=== PATIENT | male | born 1970 | race Caucasian/White ===

== ENCOUNTER 2019-09-14 07:02 | Emergency (ER) | payer OTHER, SELFPAY ==
--- NOTE | ~2019-09-14 | CT_ITS ---
EXAMINATION: CT abdomen pelvis wo con DATE: 09/14/2019 08:21 INDICATION: Left flank pain. History kidney stones. TECHNIQUE: Computed tomography (CT) of the abdomen and pelvis was performed without intravenous contr ast. Automated exposure control and iterative reconstruction technique were employed. Exam dose: 103 1.78 mGy-cm total exam DLP. COMPARISON: 11/20/2006 CT abdomen FINDINGS: Linear calcified pulmonary granuloma. The lung bases are clear of infiltrate or consolidati on. Cardiomegaly. No pericardial or pleural effusion. The gallbladder is present. No bile duct or pancreatic duct dilatation. Hepatic steatosis. No hepatic, splenic, pancreatic, adrenal or renal space-occupying mass lesion is e vident on this limited noncontrast examination. Normal caliber of the abdominal aorta. No intraperitoneal or retroperitoneal or pelvic mass lesion or adenopathy or ascites. There is a 5 mm obstructing stone at the proximal left ureter at the upper L3 level, with mild proxim al hydroureteronephrosis. There is a nonobstructing 6.2 mm calculus at the upper pole of the left kidney. There is a nonobstructing right renal 3 mm calculus. No right hydroureteronephrosis. The urinary blad di is unremarkable. There is mild prostate enlargement and calcification. The urinary bladder is unremarkable. There are bilateral fat-containing inguinal hernias, right, larger than left. Partial fusion of the sacroiliac joints. IMPRESSION: 5 mm obstructing stone of proximal left ureter with mild proximal hydroureteronephrosis Nonobstructing 6.2 mm calculus of upper pole of left kidney Hepatic steatosis Bilateral fat-containing inguinal hernias, right greater than left Cardiomegaly Reviewed, dictated and finalized at [facility]. Reviewed, dictated and finalized at [facility].
--- NOTE | ~2019-09-14 | XR_ITS ---
EXAMINATION: XR abdomen/kub 1V INDICATION: Left flank pain TECHNIQUE: Supine views of the abdomen were obtained on 2 radiographs. COMPARISON: CT from today FINDINGS: There is a 5 mm stone of the proximal left ureter projecting over the left L3 transverse pr ocess. A 4 mm stone is seen in the left kidney upper pole. Right nephrolithiasis described on the [facility] CT is not definitely identified. The bowel gas pattern is normal. The visualized lung bases a re clear. IMPRESSION: 1. 5 mm left proximal ureteral stone projecting over the left L3 transverse process. 2. Left nephrolithiasis. Reviewed, dictated and finalized at location [facility]. IMPRESSION: 1. 5 mm left proximal ureteral stone projecting over the left L3 transverse pro cess. 2. Left nephrolithiasis.
[2019-09-14 07:09] VITALS: BP 158/81; PULSE 50; RESP 20; TEMP 36.4; O2SAT 100
[2019-09-14 07:42] LABS: Basophils Absolute Auto 0.1 K/mm3 (0.0-0.1); Basophils Percent Auto 0.9 % (0.2-1.2); Eosinophils Absolute Auto 0.1 K/mm3 (0-0.3); Hematocrit 50.7 % (42.0-52.0); Hemoglobin 17.2 g/dL (14.0-18.0); Immature Granulocyte Absolute 0.01 K/mm3 (0.00-0.031); Immature Granulocyte Percent A 0.1 % (0-0.5); Lymphocytes Absolute Auto 1.94 K/mm3 (0.9-3.2); Lymphocytes Percent Auto 25.1 % (18.3-44.2); Mean Corpuscular HGB Conc 33.9 g/dl (32-36); Mean Corpuscular Hemoglobin 31.9 pg (26-34); Mean Corpuscular Volume 94.1 fl (80-100); Mean Platelet Volume 10.6 fl (7.4-10.4); Monocytes Absolute Auto 0.4 K/mm3 (0.1-0.6); Monocytes Percent Auto 5.3 % (2.6-8.5); Neutrophils Absolute Auto 5.2 K/mm3 (1.3-6.7); Neutrophils Percent Auto 67.6 % (45.5-73.1); Platelet Count Result 301 k/mm3 (150-375); Red Blood Count 5.39 M/mm3 (4.6-6.20); Red Cell Distribution Width 13.2 % (11.5-14.5); White Blood Count 7.7 K/mm3 (4.5-10.0)
[2019-09-14] MEDS: ONDANSETRON INJ 4 MG/2 ML VIAL IV PUSH (07:49)
[2019-09-14] MEDS: MORPHINE SULFATE 4 MG/ML INJ IV PUSH (07:49)
[2019-09-14] MEDS: SODIUM CHLORIDE 0.9% IV 1,000 ML 999 ML IV CONT (07:49)
[2019-09-14 07:51] LABS: Blood Urea Nitrogen 17 mg/dL (9-20); Calcium 9.1 mg/dL (8.4-10.2); Carbon Dioxide 28 mmol/L (22-30); Chloride 101 mmol/L (98-107); Estimated CRCL calculation 82 ml/min; Estimated Glomerular Filt Rate > 60; Glucose 187 mg/dL (75-110); Sodium 138 mmol/L (137-145)
--- NOTE | 2019-09-14 08:06 | ED.ABDPAIN ---
HPI - Abdominal Pain General Chief Complaint: Abdominal Pain Stated Complaint: L flank pain Time Seen by Provider: 09/14/19 07:07 History of Present Illness HPI narrative: Patient is a 49-year-old male who presents the ER with left-sided flank pain. Sudden onset at 4 AM. Radiates into the abdomen. Associate with nausea and vomiting x1. No urinary frequency or urgency. No hematuria or dysuria. Concerned he may have a kidney stone. No alleviating factors noted. Related Data Allergies Allergy/AdvReac Type Severity Reaction Status Date / Time No Known Allergies Allergy Verified 09/14/19 07:14 Review of Systems Review of Systems: All systems reviewed & are unremarkable except as noted in HPI and below Constitutional: Constitutional: Denies chills and Denies fever(s) Gastrointestinal: Gastrointestinal: Reports nausea and Reports vomiting Genitourinary: Genitourinary: Denies hematuria, Denies dysuria, Denies testicular pain and Denies urinary frequency PMFSH Past Medical History Medical History (Updated 09/14/19 @ 10:08 by Raghu Jolly MD) Melanoma Surgical History Surgical History (Updated 09/14/19 @ 08:08 by Raghu Jolly MD) H/O melanoma excision Social History Social History (Updated 09/14/19 @ 08:08 by Raghu Jolly MD) Smoking status: Never smoker Gender identity (if verbalized by the patient): Male Exam Narrative: Exam Narrative: GENERAL: Uncomfortable-appearing, well-nourished, and in no acute distress. HEAD: Normocephalic, atraumatic. ENT: Mucous membranes moist. CHEST: Clear to auscultation. No respiratory distress. HEART: Regular rate and rhythm. Normal peripheral pulses. ABDOMEN: Soft, nontender, nondistended. EXTREMITIES: Normal range of motion. No edema. NEURO: Alert and oriented x3. PSYCH: Normal mood and affect. Course Course Emergency Course: Patient feeling better after morphine. Informed of results. Discussed case with urology who recommends close follow-up. Patient be provided supportive medications for home. Vital Signs Vital signs: Vital Signs Temperature 97.5 F L 09/14/19 07:09 Pulse Rate 50 L 09/14/19 07:09 Respiratory Rate 20 09/14/19 07:09 Blood Pressure 158/81 H 09/14/19 07:09 Pulse Oximetry 100 09/14/19 07:09 Temperature 97.5 F L 09/14/19 07:09 Pulse Rate 50 L 09/14/19 07:09 Respiratory Rate 20 09/14/19 07:09 Blood Pressure 158/81 H 09/14/19 07:09 Pulse Oximetry 100 09/14/19 07:09 MDM - Abdominal Pain Lab Data Result diagrams: 09/14/19 07:32 09/14/19 07:32 Labs: Lab Results 09/14/19 09/14/19 09/14/19 Range/Units 07:32 07:32 08:41 WBC 7.7 (4.5-10.0) K/mm3 RBC 5.39 (4.6-6.20) M/mm3 Hgb 17.2 (14.0-18.0) g/dL Hct 50.7 (42.0-52.0) % MCV 94.1 (80-100) fl MCH 31.9 (26-34) pg MCHC 33.9 (32-36) g/dl RDW 13.2 (11.5-14.5) % Plt Count 301 (150-375) k/mm3 MPV 10.6 H (7.4-10.4) fl Immature Gran % (Auto) 0.1 (0-0.5) % Neut % (Auto) 67.6 (45.5-73.1) % Lymph % (Auto) 25.1 (18.3-44.2) % [place] % (Auto) 5.3 (2.6-8.5) % Eos % (Auto) 1.0 (0-4.4) % Baso % (Auto) 0.9 (0.2-1.2) % Lymph # (Auto) 1.94 (0.9-3.2) K/mm3 [place] # (Auto) 0.4 (0.1-0.6) K/mm3 Eos # (Auto) 0.1 (0-0.3) K/mm3 Baso # (Auto) 0.1 (0.0-0.1) K/mm3 Abs Immat Gran (auto) 0.01 (0.00-0.031) K/mm3 Absolute Neuts (auto) 5.2 (1.3-6.7) K/mm3 Absolute Nucleated RBC 0.0 (0.0-0.012) K/mm3 Nucleated RBC % 0.0 (0.0-0.2) % Sodium 138 (137-145) mmol/L Potassium 4.0 (3.4-5.0) mmol/L Chloride 101 (98-107) mmol/L Carbon Dioxide 28 (22-30) mmol/L Anion Gap 13.0 (7-16) mmol/L BUN 17 (9-20) mg/dL Creatinine 1.20 (0.7-1.3) mg/dL Estim Creat Clear Calc 82 ml/min Estimated GFR > 60 (59 - ) Glucose 187 H (75-110) mg/dL Calcium 9.1 (8.4-10.2) mg/dL Urine Color Yellow (Yellow)
[2019-09-14 08:57] LABS: Appearance Urine Clear (Clear); Bilirubin Urine 1+ (Negative); Blood Urine 2+ (Negative); Color Urine Yellow (Yellow); Glucose Urine UA Negative (Negative); Ketones Urine Negative (Negative); Leukocyte Esterase Ur Negative LEU/UL (Negative); Nitrate Urine Negative (Negative); Protein Urine 1+ mg/dL (Negative); Specific Grav Ur >= 1.030 (1.001-1.035); Urobilinogen Urine 0.2 mg/dL (<2.0); pH Urine 5.5 (5.0-9.0)
[2019-09-14 09:15] LABS: Add Urine Microscopic? YES; RBC Urine >75 /hpf (0-2)
[2019-09-14 09:17] LABS: Mucus Urine Rare /lpf
[2019-09-14 10:18] VITALS: BP 143/90; PULSE 65; RESP 16; O2SAT 97
== END 2019-09-14 10:30 | disposition home or self-care (01) ==
PROVIDERS: Emergency Provider Emergency Medicine
DX: N13.2 Hydronephrosis with renal and ureteral calculous obstruction (principal); K76.0 Fatty (change of) liver, not elsewhere classified; I51.7 Cardiomegaly; K40.90 Unilateral inguinal hernia, without obstruction or gangrene, not specified as recurrent; Z85.820 Personal history of malignant melanoma of skin
CPT/HCPCS: 36415; 74018; 74176; 80048; 81001; 85025; 87086; 96361; 96374; 96375; 99284; J2270; J2405; J7030

== ENCOUNTER 2019-09-15 15:57 | Observation (INO) | payer OTHER, SELFPAY ==
--- NOTE | ~2019-09-15 | CT_ITS ---
EXAMINATION: CT abdomen pelvis wo con DATE: 09/16/2019 13:13 INDICATION: Renal stone TECHNIQUE: Computed tomography (CT) of the abdomen and pelvis was performed without intravenous contr ast. Automated exposure control and iterative reconstruction technique were employed. The dose-length product was 410.72 mGy-cm. COMPARISON: 09/14/2019 FINDINGS: Calcified granuloma in the lingula. Mild cardiomegaly. No pericardial or pleural effusion. Diffuse he patic steatosis. Gallbladder, spleen, pancreas and bilateral adrenal glands are normal. Unchanged non obstructing 3 mm stone in the mid right kidney with no hydronephrosis or stones along the right urete r. Interval advancement of a 5 x 3 mm stone about the distalmost left ureter within 1 cm of the urete rovesicular junction with persistent mild left hydroureteronephrosis. No interval change in a second 6 mm stone at the upper pole of the left kidney. Bowels including the appendix are normal. Bladder an d prostate are unremarkable. Small left and moderate-sized right fat-containing inguinal hernias. No free intraperitoneal gas or fluid. No pathologically enlarged abdominal or pelvic lymphadenopathy. Ag ain seen is partial ankylosis across the bilateral sacroiliac joints. IMPRESSION: 1. Bilateral nephrolithiasis with interval advancement of at least partially obstructing 5 x 3 mm sto ne now in the distalmost left ureter with unchanged mild left hydroureteronephrosis. 2. Mild cardiomegaly. 3. Diffuse hepatic steatosis. 4. Bilateral fat-containing inguinal hernias, right greater than left. Reviewed, dictated and finalized at location [facility]. IMPRESSION: 1. Bilateral nephrolithiasis with interval advancement of at least partially ob structing 5 x 3 mm stone now in the distalmost left ureter with unchanged mild left hydroureteronephrosis. 2. Mild cardiomegaly. 3. Diffuse hepatic steatosis. 4. Bilateral fat-containing inguinal hernias, right greater than left.
--- NOTE | ~2019-09-15 | XR_ITS ---
EXAMINATION: XR abdomen/kub 1V EXAM DATE: 09/15/2019 17:28 INDICATION: Left-sided abdominal pain. TECHNIQUE: Frontal projection of the upper abdomen, frontal projection lower abdomen/pelvis for inter pretation. There is no prior study for comparison. FINDINGS: There is moderate amount of colonic stool and gas. No small bowel dilation, nonobstructiv e bowel gas pattern. There are no suspicious calcifications identified. There is no organomegaly suspected. The bones are unremarkable. Lung bases unremarkable. IMPRESSION: Moderate amount of colonic stool. Reviewed, dictated and finalized at location [facility].
--- NOTE | ~2019-09-15 | XR_ITS ---
EXAMINATION: XR retrograde pyelogram LT EXAM DATE: 09/16/2019 14:26 INDICATION: Left retrograde. Left distal ureteral stone. TECHNIQUE: Fluoroscopy used during XR retrograde pyelogram LT performed by Dr. Fitz Lizarraga MD. The DAP for this procedure was 1.0 mGym2. Cine run(s) available for review. FINDINGS: Left ureter was cannulated, injected. Ureter, calyces are unremarkable. Correlate with pr ocedure note. IMPRESSION: Fluoroscopy used during XR retrograde pyelogram LT. Reviewed, dictated and finalized at location [facility].
[2019-09-15 16:02] VITALS: BP 158/88; PULSE 73; RESP 20; TEMP 36.2; O2SAT 97
[2019-09-15 17:11] LABS: Basophils Percent Auto 0.3 % (0.2-1.2); Eosinophils Percent Auto 0.1 % (0-4.4); Hematocrit 48.4 % (42.0-52.0); Hemoglobin 16.9 g/dL (14.0-18.0); Immature Granulocyte Absolute 0.03 K/mm3 (0.00-0.031); Immature Granulocyte Percent A 0.2 % (0-0.5); Lymphocytes Absolute Auto 0.93 K/mm3 (0.9-3.2); Lymphocytes Percent Auto 7.5 % (18.3-44.2); Mean Corpuscular HGB Conc 34.9 g/dl (32-36); Mean Corpuscular Hemoglobin 32.4 pg (26-34); Mean Corpuscular Volume 92.9 fl (80-100); Mean Platelet Volume 10.6 fl (7.4-10.4); Monocytes Absolute Auto 0.5 K/mm3 (0.1-0.6); Monocytes Percent Auto 3.9 % (2.6-8.5); Neutrophils Absolute Auto 10.9 K/mm3 (1.3-6.7); Platelet Count Result 307 k/mm3 (150-375); Red Blood Count 5.21 M/mm3 (4.6-6.20); Red Cell Distribution Width 12.9 % (11.5-14.5); White Blood Count 12.3 K/mm3 (4.5-10.0)
[2019-09-15] MEDS: ONDANSETRON INJ 4 MG/2 ML VIAL IV PUSH ×2 (17:13→21:51)
[2019-09-15] MEDS: SODIUM CHLORIDE 0.9% IV 1,000 ML 999 ML IV CONT (17:13)
[2019-09-15] MEDS: FAMOTIDINE 20 MG/2 ML VIAL IV PUSH (17:13)
[2019-09-15 17:25] LABS: Alanine Aminotransferase 69 U/L (4-50); Albumin Level 4.5 g/dL (3.5-5.1); Alkaline Phosphatase 78 U/L (38-126); Anion Gap 11.8 mmol/L (7-16); Aspartate Amino Transferase 39 U/L (17-59); Bilirubin,Total 1.3 mg/dL (0.2-1.3); Blood Urea Nitrogen 14 mg/dL (9-20); Calcium 9.1 mg/dL (8.4-10.2); Carbon Dioxide 26 mmol/L (22-30); Chloride 102 mmol/L (98-107); Estimated CRCL calculation 108 ml/min; Estimated Glomerular Filt Rate > 60; Glucose 129 mg/dL (75-110); Lipase 46 U/L (23-300); Potassium 3.8 mmol/L (3.4-5.0); Sodium 136 mmol/L (137-145)
[2019-09-15 17:42] LABS: Add Urine Microscopic? YES; Appearance Urine Clear (Clear); Bacteria Urine Trace /hpf; Bilirubin Urine Negative (Negative); Blood Urine 1+ (Negative); Color Urine Yellow (Yellow); Glucose Urine UA Negative (Negative); Ketones Urine Negative (Negative); Leukocyte Esterase Ur Negative LEU/UL (Negative); Mucus Urine Few /lpf; Nitrate Urine Negative (Negative); Protein Urine Negative (Negative); Specific Grav Ur 1.016 (1.001-1.035); Urobilinogen Urine Negative mg/dL (<2.0); WBC Urine 0-3 /hpf
--- NOTE | 2019-09-15 18:01 | ED.ABDPAIN ---
HPI - Abdominal Pain General Chief Complaint: Urogenital-Male <Jason León PA-C - Last Filed: 09/15/19 18:32> Stated Complaint: kidney stone <Jason León PA-C - Last Filed: 09/15/19 18:32> Time Seen by Provider: 09/15/19 16:05 <DANIEL Ball Last Filed: 09/15/19 18:32> Source: patient <Jason León PA-C - Last Filed: 09/15/19 18:32> Mode of arrival: ambulatory <Jason León PA-C - Last Filed: 09/15/19 18:32> Limitations: no limitations <DANIEL Ball Last Filed: 09/15/19 18:32> History of Present Illness HPI narrative: Patient is a 49-year-old male who presents to emergency department for evaluation of left flank pain diagnosed yesterday with kidney stone patient notes that went home with medications and has continued to have moderate to severe pain from the flank to the groin patient has follow-up with urology tomorrow patient on arrival in acute pain distress patient denies fever notes dry retching. <Jason León PA-C - Last Filed: 09/15/19 18:32> Related Data Allergies/Adverse Reactions: Allergies Allergy/AdvReac Type Severity Reaction Status Date / Time No Known Allergies Allergy Verified 09/15/19 16:44 <DANIEL Ball Last Filed: 09/15/19 18:32> Review of Systems Review of Systems: All systems reviewed & are unremarkable except as noted in HPI and below <Jason León PA-C - Last Filed: 09/15/19 18:32> [facility], [facility] Past Medical History Medical History: Medical History (Updated 09/15/19 @ 19:13 by Guadalupe Frausto MD) Kidney stone Melanoma <Jason León PA-C - Last Filed: 09/15/19 18:32> Surgical History Surgical History: Surgical History H/O melanoma excision <DANIEL Ball Last Filed: 09/15/19 18:32> Social History Social History: Social History Smoking status: Never smoker Gender identity (if verbalized by the patient): Male <Jason León PA-C - Last Filed: 09/15/19 18:32> Exam Narrative: Exam Narrative: GENERAL: Well-appearing, uncomfortable, well-nourished, and in no acute distress. HEAD: Normocephalic, atraumatic. EYES: PERRLA and EOMI. ENT: Nares clear, no rhinorrhea or epistaxis. Mucous membranes moist. NECK: Supple. No adenopathy or masses. CHEST: Clear to auscultation. No respiratory distress. No wheezes rales or rhonchi HEART: Regular rate and rhythm. No murmur heard. Normal peripheral pulses. ABDOMEN: Soft, nontender, nondistended EXTREMITIES: Normal range of motion. No edema. SKIN: Warm, dry, no rash. NEURO: No focal deficits. Alert and oriented x3. PSYCH: Normal mood and affect. <Jason León PA-C - Last Filed: 09/15/19 18:32> Course Course Emergency Course: Patient in the room given pain medications and fluids with improvement of condition no high risk changes in the blood work or imaging will be placed in hospital aware of discussion with hospitalist and specialists <Jason León PA-C - Last Filed: 09/15/19 18:32> CLINICAL INTERVIEWER/PA Physician Supervision For this patient encounter, I reviewed the CLINICAL INTERVIEWER or PA documentation, treatment plan, and medical decision making; and I had [id number] time with this patient. Patient was diagnosed with left proximal ureteral calculus yesterday. He was discharged with norco but he states the pain was unbearable even though he was taking every 3 hours. He has been admitted to hospitalist for pain control with urology consult. He states his pain is much better 2/10 now . <Guadalupe Frausto MD - Last Filed: 09/15/19 19:13> Consultations Consultation #1: Discussed with urology and primary care who have accepted the patient <Jason León PA-C - Last Filed: 09/15/19 18:32> Date: 09/15/19 <Jason León PA-C - Last Filed: 09/15/19 18:32> Time: 18:30 <
[2019-09-15 19:30] VITALS: BP 140/82; PULSE 81; RESP 18; TEMP 36.8; O2SAT 96
[2019-09-15 19:51] VITALS: BP 140/80; PULSE 80; RESP 16; TEMP 36.8; O2SAT 97
--- NOTE | 2019-09-15 20:54 | ADMGEN ---
This patient, Alfonso Springer, was admitted to Medical Room 250-01. Patient/family oriented to hospital policies and general routines including ID bracelet, bed and alarms, visiting hours, pain management, procedures, bathroom and other care routines, personal items, smoking policy, room service/diet, and visiting hours. Valuables list has been completed. Information on how to activate the Rapid Response Team has been discussed. Patient/Family are encouraged to report perceived risks to care and to ask questions if they do not understand what they are told or what they should do.
[2019-09-15] MEDS: LACTATED RINGERS 1,000 ML 125 ML IV CONT (21:16)
[2019-09-15 21:20] VITALS: BP 171/89; PULSE 77; RESP 20; TEMP 36.6; O2SAT 99
[2019-09-15 21:21] VITALS: BMI 34.6
[2019-09-16] VITALS (14 sets, daily range): BP systolic 82–195; BP diastolic 44–99; PULSE 59–86; RESP 10–20; TEMP 36.2–36.8; O2SAT 95–100
--- NOTE | 2019-09-16 00:58 | PM.IMHP ---
H&P: HPI History of Present Illness Date/Time: 09/16/19 00:58 Chief complaint: Urolithiasis Narrative: This is a 49 year old male who is known to have had a previous renal stone approximately 7 years ago and who returned to the hospital tonight with a complaint of left flank pain radiating down to his groin for the past 2 days. Associated symptoms include nausea but no vomiting or fevers. He was evaluated in the ER 2 days ago and found to have a 5 mm left renal stone and yesterday he had a repeat abdominal xray that no long er demonstrated the stone. The patient was in severe pain and admitted to the hospital for pain control. He also complained of constipation. Urology, Dr. Hightower has been consulted by ER provider. Review of Systems Review of Systems: All systems reviewed & are unremarkable except as noted in HPI and below PMFSH Past Medical History Medical History Kidney stone Melanoma Right inguinal hernia Surgical History Surgical History H/O melanoma excision Family History Family History Mother Kidney disease Social History Social History Smoking status: Never smoker Alcohol intake: never Substance use: never Substance use type: does not use Gender identity (if verbalized by the patient): Male Spiritual care concerns: No Meds Home Medications and Allergies Home Medications Medication Instructions Recorded Confirmed Type hydrocodone-acetaminophen 1 tablet PO Q6H PRN #20 tablet 09/14/19 09/15/19 Rx ondansetron 4 mg PO Q6H PRN #10 tablet 09/14/19 09/15/19 Rx tamsulosin 0.4 mg PO DAILY #7 cap 09/14/19 09/15/19 Rx Allergies Allergy/AdvReac Type Severity Reaction Status Date / Time No Known Allergies Allergy Verified 09/15/19 16:44 Vital Signs Vital Signs - 24 hr 09/15/19 16:02 09/15/19 19:30 09/15/19 19:51 Temperature 36.2 C L 36.8 C 36.8 C Pulse Rate 73 81 80 Respiratory Rate 20 18 16 Blood Pressure 158/88 H 140/82 140/80 Pulse Oximetry 97 96 97 09/15/19 21:20 Temperature 36.6 C Pulse Rate 77 Respiratory Rate 20 Blood Pressure 171/89 H Pulse Oximetry 99 Exam Const: General: cooperative, healthy appearing, no acute distress, alert and awake Nutritional Appearance: well nourished Orientation/consciousness: patient oriented x3 HENMT: Head: normal to inspection General nose exam: Normal external nose present Face and sinus: normal facial exam Mouth: Yes Normal oral and palatal mucosa present and Yes oropharynx normal Eyes: Pupils: Equal, round and reactive pupils present EOM: EOMs intact bilaterally Neck: Neck: supple and no JVD Thyroid: thyroid normal Lymphatic: lymphadenopathy not noted Resp: Effort & Inspection: normal respiratory effort Auscultation: clear to auscultation bilaterally Cardio: Rate: regular rate Rhythm: regular rhythm Heart sounds: no murmurs GI: Inspection: normal to inspection Auscultation: normal bowel sounds Skin: General skin exam: normal color and no rashes or lesions noted Neuro: General: patient oriented x3 Cranial nerves: Yes CN's II-XII intact bilaterally and Yes Equal, round and reactive pupils present Speech: normal speech Motor exam (neuro): 5/5 motor strength present throughout Sensory Exam: normal sensation Extrem: General: normal to inspection and no edema Psych: Mental Status: mental status grossly normal Affect: normal affect H&P: Results Labs Labs: Short CBC 09/15/19 Range/Units 17:05 WBC 12.3 H (4.5-10.0) K/mm3 Hgb 16.9 (14.0-18.0) g/dL Hct 48.4 (42.0-52.0) % Plt Count 307 (150-375) k/mm3 [facility] 09/15/19 17:05 Sodium 136 L Potassium 3.8 Chloride 102 Carbon Dioxide 26 BUN 14 Creatinine 0.90 Glucose 129 H Calcium 9.1 Liver Function
[2019-09-16] MEDS: BISACODYL 5 MG TABLET EC PO (01:13)
[2019-09-16] MEDS: KETOROLAC 30 MG/ML VIAL (*BKC) IV PUSH (04:31)
[2019-09-16] MEDS: LACTATED RINGERS 1,000 ML 125 ML IV CONT (04:35)
[2019-09-16 05:33] LABS: Basophils Percent Auto 0.4 % (0.2-1.2); Eosinophils Absolute Auto 0.1 K/mm3 (0-0.3); Eosinophils Percent Auto 0.6 % (0-4.4); Hematocrit 41.8 % (42.0-52.0); Hemoglobin 14.3 g/dL (14.0-18.0); Immature Granulocyte Absolute 0.02 K/mm3 (0.00-0.031); Immature Granulocyte Percent A 0.2 % (0-0.5); Lymphocytes Absolute Auto 2.48 K/mm3 (0.9-3.2); Mean Corpuscular HGB Conc 34.2 g/dl (32-36); Mean Corpuscular Hemoglobin 31.9 pg (26-34); Mean Corpuscular Volume 93.3 fl (80-100); Mean Platelet Volume 10.6 fl (7.4-10.4); Monocytes Absolute Auto 0.8 K/mm3 (0.1-0.6); Monocytes Percent Auto 7.4 % (2.6-8.5); Neutrophils Percent Auto 67.4 % (45.5-73.1); Platelet Count Result 281 k/mm3 (150-375); Red Blood Count 4.48 M/mm3 (4.6-6.20); Red Cell Distribution Width 12.6 % (11.5-14.5); White Blood Count 10.4 K/mm3 (4.5-10.0)
[2019-09-16 05:58] LABS: Anion Gap 9.5 mmol/L (7-16); Blood Urea Nitrogen 12 mg/dL (9-20); Calcium 8.3 mg/dL (8.4-10.2); Carbon Dioxide 28 mmol/L (22-30); Chloride 103 mmol/L (98-107); Estimated CRCL calculation 109 ml/min; Estimated Glomerular Filt Rate > 60; Glucose 104 mg/dL (75-110); Potassium 3.5 mmol/L (3.4-5.0); Sodium 137 mmol/L (137-145)
[2019-09-16] MEDS: TAMSULOSIN HCL 0.4 MG CAPSULE PO (08:15)
[2019-09-16] MEDS: FAMOTIDINE 20 MG/2 ML VIAL IV PUSH (08:15)
--- NOTE | 2019-09-16 08:53 | WPDURCON ---
Assessment and Plan Assessment and plan (1) Calculus of proximal left ureter: Code(s): N20.1 - Calculus of ureter Status: Acute Assessment and Plan: Obtain Consent Patient will go to the OR today: Cystoscopy, left ureteroscopy with stone extraction, possible left stent placement, retrograde pyelogram, possible holmium laser. Keep NPO. We discussed doing an ESWL versus ureteroscopy, patient states the pain is too severe to wait for an ESWL, therefore he wants to proceed with a ureteroscopy today. (2) Urolithiasis: Code(s): N20.9 - Urinary calculus, unspecified Status: Acute Assessment and Plan: Will monitor as an outpatient, no further evaluation. Urology Consult Note HPI Date Seen: 09/16/19 Requesting Physician: Mya Aguilar PA-C Primary Care Provider: SAFETY AND OCCUPATIONAL HEALTH MANAGER PHYSICIAN Consult Narrative Narrative: Alfonso Springer is a 49 year old male who presented to the ER initially on 09/14/2019 for left flank pain that radiated to the LLQ, nausea and diaphoresis. He was found to have a 5mm left proximal ureteral stone on CT as well as a 6.2mm left non obstructive stone. He was discharged home with pain medication and was to follow up today in the office for evaluation to remove the stone surgically, however is pain persisted and became too severe. He went back to the ER yesterday and was admitted for pain control and further evaluation. His WBC is 10.4, creatinine is 0.90, UA shows blood, otherwise no indication for infection, urine culture is negative. He states that [place] and Dilaudid did not improve his pain but the Torodol that was given has helped his pain tremendously. Review of Systems Cardiovascular: Cardiovascular: Denies chest pain Respiratory: Respiratory: Reports no additional respiratory complaints Gastrointestinal: Gastrointestinal: Reports abdominal pain, Reports nausea and Denies vomiting Genitourinary: Genitourinary: Denies hematuria, Denies dysuria, Reports flank pain and Denies urinary urgency PMFSH Past Medical History Medical History Kidney stone Melanoma Right inguinal hernia Surgical History Surgical History H/O melanoma excision Family History Family History Mother Kidney disease Social History Social History Smoking status: Never smoker Alcohol intake: never Substance use: never Substance use type: does not use Gender identity (if verbalized by the patient): Male Spiritual care concerns: No Meds Home Medications and Allergies Home Medications Medication Instructions Recorded Confirmed Type hydrocodone-acetaminophen 1 tablet PO Q6H PRN #20 tablet 09/14/19 09/15/19 Rx ondansetron 4 mg PO Q6H PRN #10 tablet 09/14/19 09/15/19 Rx tamsulosin 0.4 mg PO DAILY #7 cap 09/14/19 09/15/19 Rx Allergies Allergy/AdvReac Type Severity Reaction Status Date / Time No Known Allergies Allergy Verified 09/15/19 16:44 Vital Signs Vital Signs - 24 hr 09/15/19 16:02 09/15/19 19:30 09/15/19 19:51 Temperature 97.2 F L 98.2 F 98.3 F Pulse Rate 73 81 80 Respiratory Rate 20 18 16 Blood Pressure 158/88 H 140/82 140/80 Pulse Oximetry 97 96 97 09/15/19 21:20 09/16/19 02:00 09/16/19 06:00 Temperature 97.9 F 98.2 F 98.2 F Pulse Rate 77 60 62 Respiratory Rate 20 16 12 Blood Pressure 171/89 H 119/62 108/82 Pulse Oximetry 99 97 98 Exam Resp: Effort & Inspection: normal respiratory effort Cardio: Rate: regular rate GI: GI Palp: Yes Soft to palpation and No Tenderness to palpation present (GI) : General: Yes no CVA tenderness Extrem: General: no edema Results Labs CBC & Chem 7: 09/16/19 04:52 09/16/19 04:52 Labs: Short CBC 09/15/19 09/16/19 Range/Units 17:05 04:52
--- NOTE | 2019-09-16 09:54 | WPDANESEPP ---
Anes - Eval Pre Procedure Procedure: Operation Date: 09/16/19 13:00 Proposed Procedures p Cystoscopy, Left Ureteroscopy with Stone Extraction and Possible Stent Placement - Fitz Lizarraga MD s Possible Holmium Laser Procedure - Fitz Lizarraga MD Date/Time: 09/16/19 09:54 Pre Op Diagnosis: Urolithiasis Patient Data Age: 49 Gender: M Height: 5 ft 11 in Weight: 112.5 kg Last Vital Signs Temp 97.6 F 09/16/19 08:00 Pulse 59 L 09/16/19 08:00 Resp 18 09/16/19 08:00 BP 129/75 09/16/19 08:00 Pulse Ox 95 09/16/19 08:00 Allergies Allergy/AdvReac Type Severity Reaction Status Date / Time No Known Allergies Allergy Verified 09/15/19 16:44 Home Medications Medication Instructions Recorded Confirmed Type hydrocodone-acetaminophen 1 tablet PO Q6H PRN #20 tablet 09/14/19 09/15/19 Rx ondansetron 4 mg PO Q6H PRN #10 tablet 09/14/19 09/15/19 Rx tamsulosin 0.4 mg PO DAILY #7 cap 09/14/19 09/15/19 Rx Laboratory Tests 09/15/19 09/15/19 09/15/19 17:05 17:05 17:33 WBC 12.3 K/mm3 H K/mm3 (4.5-10.0) RBC 5.21 M/mm3 M/mm3 (4.6-6.20) Hgb 16.9 g/dL g/dL (14.0-18.0) Hct 48.4 % % (42.0-52.0) MCV 92.9 fl fl (80-100) MCH 32.4 pg pg (26-34) MCHC 34.9 g/dl g/dl (32-36) RDW 12.9 % % (11.5-14.5) Plt Count 307 k/mm3 k/mm3 (150-375) MPV 10.6 fl H fl (7.4-10.4) Immature Gran % (Auto) 0.2 % % (0-0.5) Neut % (Auto) 88.0 % H % (45.5-73.1) Lymph % (Auto) 7.5 % L % (18.3-44.2) [place] % (Auto) 3.9 % % (2.6-8.5) Eos % (Auto) 0.1 % % (0-4.4) Baso % (Auto) 0.3 % % (0.2-1.2) Lymph # (Auto) 0.93 K/mm3 K/mm3 (0.9-3.2) [place] # (Auto) 0.5 K/mm3 K/mm3 (0.1-0.6) Eos # (Auto) 0.0 K/mm3 K/mm3 (0-0.3) Baso # (Auto) 0.0 K/mm3 K/mm3 (0.0-0.1) Abs Immat Gran (auto) 0.03 K/mm3 K/mm3 (0.00-0.031) Absolute Neuts (auto) 10.9 K/mm3 H K/mm3 (1.3-6.7) Absolute Nucleated RBC 0.0 K/mm3 K/mm3 (0.0-0.012) Nucleated RBC % 0.0 % % (0.0-0.2) Sodium 136 mmol/L L mmol/L (137-145) Potassium 3.8 mmol/L mmol/L (3.4-5.0) Chloride 102 mmol/L mmol/L (98-107) Carbon Dioxide 26 mmol/L mmol/L (22-30) Anion Gap 11.8 mmol/L mmol/L (7-16) BUN 14 mg/dL mg/dL (9-20) Creatinine 0.90 mg/dL mg/dL (0.7-1.3) Estim Creat Clear Calc 108 ml/min ml/min Estimated GFR > 60 (59 - ) Glucose 129 mg/dL H mg/dL (75-110) Calcium 9.1 mg/dL mg/dL (8.4-10.2) Total Bilirubin 1.3 mg/dL mg/dL (0.2-1.3) AST 39 U/L U/L (17-59) ALT 69 U/L H U/L (4-50) Alkaline Phosphatase 78 U/L U/L (38-126) Total Protein 8.0 g/dL g/dL (6.3-8.2) Albumin 4.5 g/dL g/dL (3.5-5.1) Lipase 46 U/L U/L (23-300) Urine Color Yellow (Yellow) Urine Appearance Clear (Clear) Urine pH 5.0 (5.0-9.0) Ur Specific [place] 1.016 (1.001-1.035) Urine Protein Negative mg/dL mg/dL (Negative) Urine Glucose (UA) Negative mg/dL mg/dL (Negative) Urine Ketones Negative mg/dL mg/dL (Negative) Ur Blood (Man) 1+ H (Negative) Urine Nitrate Negative (Negative) Urine Bilirubin Negative (Negative) Urine Urobilinogen Negative mg/dL mg/dL (<2.0) Leukocyte Esterase Rfl Negative PETROS/UL PETROS/UL (Negative) Urine RBC 6-10 /hpf H /hpf (0-2) Urine WBC 0-3 /hpf /hpf Urine Bacteria Trace /hpf /hpf Hyaline Casts 1-2 /lpf /lpf (None) Urine Mucus Few /lpf H /lpf 09/16/19 09/16/19 04:52 04:52 WBC 10.4 K/mm3 H K/mm3 (4.5-10.0) RBC 4.48 M/mm3 L M/mm3
[2019-09-16] MEDS: LACTATED RINGERS 1,000 ML 30 ML IV CONT ×3 (12:00→15:01)
--- NOTE | 2019-09-16 12:36 | WPDANESEPPF ---
Anes - Initial Pre Proc Eval Procedure: Operation Date: 09/16/19 13:00 Proposed Procedures p Cystoscopy, Left Ureteroscopy with Stone Extraction and Possible Stent Placement - Fitz Lizarraga MD s Possible Holmium Laser Procedure - Fitz Lizarraga MD Date/Time: 09/16/19 12:36 Surgeon: Mya Aguilar PA-C Pre Op Diagnosis: Urolithiasis Patient Data Age: 49 Gender: M Height: 5 ft 11 in Weight: 112.5 kg Last Vital Signs Temp 36.4 C 09/16/19 08:00 Pulse 59 L 09/16/19 08:00 Resp 18 09/16/19 08:00 BP 129/75 09/16/19 08:00 Pulse Ox 95 09/16/19 08:00 Allergies Allergy/AdvReac Type Severity Reaction Status Date / Time No Known Allergies Allergy Verified 09/15/19 16:44 Home Medications Medication Instructions Recorded Confirmed Type hydrocodone-acetaminophen 1 tablet PO Q6H PRN #20 tablet 09/14/19 09/15/19 Rx ondansetron 4 mg PO Q6H PRN #10 tablet 09/14/19 09/15/19 Rx tamsulosin 0.4 mg PO DAILY #7 cap 09/14/19 09/15/19 Rx Laboratory Tests 09/15/19 09/15/19 09/15/19 17:05 17:05 17:33 WBC 12.3 K/mm3 H K/mm3 (4.5-10.0) RBC 5.21 M/mm3 M/mm3 (4.6-6.20) Hgb 16.9 g/dL g/dL (14.0-18.0) Hct 48.4 % % (42.0-52.0) MCV 92.9 fl fl (80-100) MCH 32.4 pg pg (26-34) MCHC 34.9 g/dl g/dl (32-36) RDW 12.9 % % (11.5-14.5) Plt Count 307 k/mm3 k/mm3 (150-375) MPV 10.6 fl H fl (7.4-10.4) Immature Gran % (Auto) 0.2 % % (0-0.5) Neut % (Auto) 88.0 % H % (45.5-73.1) Lymph % (Auto) 7.5 % L % (18.3-44.2) Long % (Auto) 3.9 % % (2.6-8.5) Eos % (Auto) 0.1 % % (0-4.4) Baso % (Auto) 0.3 % % (0.2-1.2) Lymph # (Auto) 0.93 K/mm3 K/mm3 (0.9-3.2) Long # (Auto) 0.5 K/mm3 K/mm3 (0.1-0.6) Eos # (Auto) 0.0 K/mm3 K/mm3 (0-0.3) Baso # (Auto) 0.0 K/mm3 K/mm3 (0.0-0.1) Abs Immat Gran (auto) 0.03 K/mm3 K/mm3 (0.00-0.031) Absolute Neuts (auto) 10.9 K/mm3 H K/mm3 (1.3-6.7) Absolute Nucleated RBC 0.0 K/mm3 K/mm3 (0.0-0.012) Nucleated RBC % 0.0 % % (0.0-0.2) Sodium 136 mmol/L L mmol/L (137-145) Potassium 3.8 mmol/L mmol/L (3.4-5.0) Chloride 102 mmol/L mmol/L (98-107) Carbon Dioxide 26 mmol/L mmol/L (22-30) Anion Gap 11.8 mmol/L mmol/L (7-16) BUN 14 mg/dL mg/dL (9-20) Creatinine 0.90 mg/dL mg/dL (0.7-1.3) Estim Creat Clear Calc 108 ml/min ml/min Estimated GFR > 60 (59 - ) Glucose 129 mg/dL H mg/dL (75-110) Calcium 9.1 mg/dL mg/dL (8.4-10.2) Total Bilirubin 1.3 mg/dL mg/dL (0.2-1.3) AST 39 U/L U/L (17-59) ALT 69 U/L H U/L (4-50) Alkaline Phosphatase 78 U/L U/L (38-126) Total Protein 8.0 g/dL g/dL (6.3-8.2) Albumin 4.5 g/dL g/dL (3.5-5.1) Lipase 46 U/L U/L (23-300) Urine Color Yellow (Yellow) Urine Appearance Clear (Clear) Urine pH 5.0 (5.0-9.0) Ur Specific [place] 1.016 (1.001-1.035) Urine Protein Negative mg/dL mg/dL (Negative) Urine Glucose (UA) Negative mg/dL mg/dL (Negative) Urine Ketones Negative mg/dL mg/dL (Negative) Ur Blood (Man) 1+ H (Negative) Urine Nitrate Negative (Negative) Urine Bilirubin Negative (Negative) Urine Urobilinogen Negative mg/dL mg/dL (<2.0) Leukocyte Esterase Rfl Negative PETROS/UL PETROS/UL (Negative) Urine RBC 6-10 /hpf H /hpf (0-2) Urine WBC 0-3 /hpf /hpf Urine Bacteria Trace /hpf /hpf Hyaline Casts 1-2 /lpf /lpf (None) Urine Mucus Few /lpf H /lpf 09/16/19 09/16/19 04:52 04:52 WBC 10.4 K/mm3 H K/mm3 (
--- NOTE | 2019-09-16 13:06 | SUR.PREOP ---
pt left for CT
[2019-09-16] MEDS: ceFAZolin 2 GM/D5W 50 ML 2 GM/50 ML BAG IVPB (13:45)
[2019-09-16] MEDS: LIDOCAINE HCL 2% GEL UROJET 10 ML PKG MUCOUS MEM (13:57)
--- NOTE | 2019-09-16 15:45 | PC.NURSE ---
Returned from OR per bed. Report received from Sussy MILLER.
--- NOTE | 2019-09-16 16:31 | PM.DS ---
DS: Admitting Diagnosis Admitting Diagnosis Admitting Diagnosis: Calculus of ureter DS: Discharge Diagnosis Discharge Diagnosis (1) Calculus of proximal left ureter: Code(s): N20.1 - Calculus of ureter Status: Acute Assessment and Plan: Evidence of 5 mm left proximal ureteral stone with mild hydroureteronephrosis on CT 09/13. He had severe left flank pain. Repeat imaging on 09/14 did not show evidence of stone. He was seen in consultation by urology and underwent cystoscopy, left ureteroscopy, laser lithotripsy, stone extraction, and retrograde pyelogram on 09/16/[address] Lizarraga. He tolerated the procedure well and was discharged following. His pain was well controlled. He will need to follow up with urology in 1 month. (2) Leukocytosis: Code(s): D72.829 - Elevated white blood cell count, unspecified Status: Acute Assessment and Plan: Secondary to ureteral stone. Levels improved. (3) Constipation: Code(s): K59.00 - Constipation, unspecified Status: Acute Assessment and Plan: Possibly secondary to narcotic pain medication. He was given appropriate laxative therapy. Recommended a consistent bowel regimen daily, especially while taking pain medications. DS: Summary Hospital Course Reason for hospitalization: Ureteral Stone Hospital Course: Date of admission: 09/15/2019 Date of discharge: 09/16/2019 Alfonso Springer is a 49 year old male who is known to have had a previous renal stone approximately 7 years ago who presented to the emergency department on 09/15/2019 with a complaint of left flank pain radiating down to his groin for the past 2 days. Associated symptoms include nausea but no vomiting or fevers. she was previously seen in the ED on 09/14/2019 with similar complaints and was found to have a 5 mm ureteral stone. He was to follow-up with urology in 1 week, however he returned to the emergency department the following day because his pain became more severe. He was admitted to the hospitalist service and was seen in consultation by Urology. He underwent stone extraction procedure as noted above. He tolerated the procedure well and was eager to return home. I discussed with urology and felt patient was stable for discharge. He will need to follow up with urology in 1 month. He was educated on his medications and we discussed worrisome signs and symptoms for which he should return. All questions were answered. He was discharged home in hemodynamically stable condition on 09/16/2019. Status at Discharge Functional status at discharge: independent ambulation Overall status at discharge: patient is back to baseline Time Spent with Patient Time attestation: Total time spent providing and/or coordinating discharge services:37 minutes Time spent: Greater than 30 minutes Exam Narrative: Exam Narrative: Mr. Springer is a well-nourished 49-year-old male who is sitting up at the bedside. He appears comfortable and is in no acute distress. HR 59, BP 129/75, R 18, T 97.6?, 95% on room air Neuro: awake, alert and oriented x4, speech clear, no focal neuro deficits noted HEENMT: normocephalic, atraumatic, EOMI, sclerae anicteric, moist oral mucosa, tongue midline, nares patent Neck: supple, no lymphadenopathy Respiratory: clear to auscultation bilaterally, nonlabored breathing Cardio: regular rate, regular rhythm with S1-S2 Abdomen: nondistended, normoactive bowel sounds, soft, nontender to palpation, no rigidity or guarding : no CVA tenderness, no suprapubic tenderness Extremities: no edema, erythema, cyanosis, clubbing, or tenderness to palpation, DP pulses 2 +bilaterally Skin: no rashes or lesions, warm and dry Psych: appropriate mood and affect, judgment and insight intact DS: Data Data Completed and Pending Pending studies at discharge: Pending at discharge 09/16/19 14:10 Surgical [PTH] Routine Labs on day of discharge: Labs from last 24
[2019-09-16] MEDS: polyethylene glycoL 3350 17 GM POWD.PACK PO (16:50)
[2019-09-16] MEDS: DOCUSATE SODIUM 100 MG CAPSULE PO (16:51)
--- NOTE | 2019-09-16 19:36 | OP_ITS ---
DATE OF PROCEDURE: 09/16/2019 PREOPERATIVE DIAGNOSIS: Left distal ureteral stone, 5 mm. POSTOPERATIVE DIAGNOSIS: Left distal ureteral stone, 5 mm. PROCEDURE PERFORMED: 1. Cystoscopy. 2. Left ureteroscopy. 3. Laser lithotripsy. 4. Stone extraction. 5. Retrograde pyelogram. INDICATION FOR PROCEDURE: The patient is a very pleasant gentleman. He presented to the emergency department last night as well as the night before while passing the 5 mm stone. The patient underwent repeat CT scan imaging that showed the stone had migrated to the distal ureter. The patient has elected to proceed with left ureteroscopy today. He understands the risk of procedure including not limited to infection, bleeding, pain, injury to surrounding structures and need for additional operations. He agrees to proceed. DESCRIPTION OF PROCEDURE: Informed consent. The patient was taken to the operating room and given preoperative IV antibiotics. He was induced anesthesia. He was prepped and draped in a normal sterile fashion. We inserted a 22-[place] cystoscope through the urethra and bladder. We checked the bladder, there were no mucosal abnormalities. We cannulated the left ureteral orifice. We then passed a wire beyond the level of the stone that was visible on imaging. We then dilated a 10 coaxial dilator to distal ureter. Advanced this semirigid ureteroscope in the distal ureter. We found the stone approximately 4 cm above the ureterovesical junction. The stone was grasped with a basket . There was some resistance at the distal ureter. We therefore elected to use a laser to fragment the stone into 3 smaller fragments to try if these can grasped individually and removed and sent as specimen. We then inspected the distal half of the ureter and there was no residual stones. There was minimal irritation to the distal ureter where the stone had been. We performed a retrograde pyelogram. This showed mild hydronephrosis. There was drainage of the ureter into the bladder. We then removed the safety wire. We inspected the bladder and saw a nice efflux from the left ureter into the bladder. I felt comfortable at this point, not to leave a stent. As there was no extravasation in the left collecting system drained nicely into the bladder. Bladder was emptied, 10 mL of lidocaine was instilled. The patient was awakened and taken to the recovery room in stable condition. IV FLUIDS: Per anesthesia. COMPLICATIONS: None. ESTIMATED BLOOD LOSS: Minimal. FOLLOWUP: The patient will follow up in the office in approximately 1 month with an ultrasound prior to appointment. D I MT: Karen
== END 2019-09-16 18:42 | disposition home or self-care (01) ==
LOC: ANHED 19:13 → ANH2MED 19:32
PROVIDERS: Emergency Medicine Emergency Medical Services; Urology; Admitting Provider Internal Medicine; Emergency Provider General Practice; Visit Provider Family Medicine
PROC: (CPT 52352; principal; 2019-09-16 13:00)
PROC: (CPT 52353; 2019-09-16 13:00)
DX: N13.2 Hydronephrosis with renal and ureteral calculous obstruction (principal); D72.829 Elevated white blood cell count, unspecified; K59.00 Constipation, unspecified
CPT/HCPCS: 52353; 36415; 74018; 74176; 74420; 80048; 80053; 81001; 82365; 83690; 85025; 88300; 96361; 96365; 96374; 96375; 96376; 99285; A9270; C1769; G0378; J0131; J0690; J1170; J1885; J2250; J2405; J3010; J7030; J7120; Q9966

== ENCOUNTER 2019-10-13 09:43 | Outpatient (CLI) | payer OTHER, SELFPAY ==
--- NOTE | ~2019-10-13 | XR_ITS ---
EXAMINATION: XR abdomen/kub 1V INDICATION: Left ureteral stone TECHNIQUE: Supine views of the abdomen were obtained on 2 radiographs. COMPARISON: 09/16/2019, 09/15/2019 FINDINGS: Previously described left nephrolithiasis and left ureteral stone are not definitely identi fied. No right-sided urolithiasis is seen. The bowel gas pattern is normal. No stones or stone fragme nts are identified in the bladder. The bowel gas pattern is normal. There is mild hip osteoarthritis. IMPRESSION: 1. No urolithiasis identified. Reviewed, dictated and finalized at location A.
== END 2019-10-13 09:44 | disposition home or self-care (01) ==
LOC: ANHIMG 09:46
PROVIDERS: PCP Family Medicine Sports Medicine; Visit Provider Urology
DX: N20.1 Calculus of ureter (principal)
CPT/HCPCS: 74018